=== PATIENT | male | born 1960 | race Two or more races ===

== ENCOUNTER 2024-10-28 12:54 | Inpatient (IN) | payer MEDICAID ==
[~2024-10-28] VITALS: Ht 165.1 cm; Wt 62.3 kg
[~2024-10-28 12:54] MED LIST: ASPI81TA53 PO; ATOR10TA PO; HYDR-3972 PO; LISI10TA27 PO; METO50TA16 PO
[2024-10-28 13:17] LABS: BASOPHILS % (AUTO) 0.3 % (0-1); EOSINOPHILS # (AUTO) 0.3 X10'3 (0-0.9); HEMATOCRIT 38.3 % (42.0-52.0); HEMOGLOBIN 12.7 g/dl (14.0-17.9); LYMPHOCYTES # (AUTO) 2.3 X10'3 (1.1-4.8); LYMPHOCYTES % (AUTO) 16.8 % (21-51); MEAN CORPUSCULAR HEMOGLOBIN 27.9 PG (27.0-31.0); MEAN CORPUSCULAR HGB CONC 33.1 g/dL (33.0-36.5); MEAN CORPUSCULAR VOLUME 84.5 FL (78-98); MEAN PLATELET VOLUME 8.5 FL (7.4-10.4); MONOCYTES % (AUTO) 7.6 % (2-12); NEUTROPHILS % (AUTO) 73.3 % (42-75); PLATELET COUNT 380 X10'3 (140-440); RED BLOOD COUNT 4.54 X10'6 (4.70-6.10); RED CELL DISTRIBUTION WIDTH 13.4 % (11.5-14.5); WHITE BLOOD COUNT 13.7 X10'3 (4.5-11.0)
[2024-10-28 13:37] LABS: ALANINE AMINOTRANSFERASE 68 U/L (12-78); ALBUMIN 3.3 G/DL (3.4-5.0); ALBUMIN/GLOBULIN RATIO 0.8 (1.1-1.5); ALKALINE PHOSPHATASE 93 IU/L (46-116); ASPARTATE AMINO TRANSFERASE 36 U/L (10-37); BILIRUBIN,TOTAL 0.8 MG/DL (0.1-1.0); BLOOD UREA NITROGEN 22 MG/DL (7-18); CALCIUM 9.4 MG/DL (8.5-10.1); GLUCOSE 144 MG/DL (70-104); TOTAL CARBON DIOXIDE 28.6 MMOL/L (24-32); TOTAL PROTEIN 7.5 G/DL (6.4-8.2); eCRCL 57 ML/MIN; eGFR 67 ML/MIN
--- NOTE | 2024-10-28 13:43 | ELECTROCARDIOGRAPH REPORT ---
[facility] Test Date: 2024-10-28 Test Time: 13:08:34 Pat Name: JED MARCIAL Department: EMERGENCY ROOM Room: ORTHO [facility] Gender: M Card Placer: TSERING : 1960 Requested By: EMILY SANDOVAL Order Number: [id number] Reading MD: Dr. Rubens Garcia Measurements Intervals Orr Rate: 117 P: 67 MD: 103 QRS: 37 QRSD: 81 T: 103 QT: 305 QTc: 426 Interpretive Statements Sinus tachycardia Probable left atrial enlargement Abnormal R-wave progression, early transition Borderline repolarization abnormality Baseline wander in lead(s) II,III,aVL,aVF Electronically Signed On 10-29-2024 6:40:[address] Rubens Garcia Please click the below link to view image of tracing.
--- NOTE | 2024-10-28 13:47 | RADIOLOGY REPORT ---
EXAM: DI CHEST,SINGLE VIEW Indication: CP Technique: Single frontal view of the chest was obtained Comparison: DI CHEST,SINGLE VIEW on DOS: 10/24/24, DI CHEST,SINGLE VIEW on DOS: 10/23/24, DI CHEST,SING LE VIEW on DOS: 10/22/24, DI CHEST,SINGLE VIEW on DOS: 10/21/24 FINDINGS: Lines and Tubes: None Lungs: No focal consolidation. Pleura: No effusion. No pneumothorax. Cardiomediastinal contours: Unremarkable Bones: No acute osseous abnormality. IMPRESSION: No acute cardiopulmonary disease.
[2024-10-28 13:55] LABS: PRO BRAIN NATRIURETIC PEPTIDE 1333 PG/ML (0-125)
[2024-10-28] MEDS ORDERED: aspirin 81mg tab.chew PO ONE (14:00)
[2024-10-28 14:07] LABS: ANION GAP 8 (8-16); CHLORIDE 105 MMOL/L (99-107); POTASSIUM 4.2 MMOL/L (3.5-5.1); SODIUM 142 MMOL/L (135-145)
--- NOTE | 2024-10-28 14:36 | RADIOLOGY REPORT ---
CLINICAL INFORMATION: 64 years old, Male; numbness. TECHNIQUE: Axial imaging was obtained through the brain without contrast. Coronal and sagittal reform atted images were obtained, reviewed, and stored. Images were reviewed in brain and bone windows. Al l CT scans at this medical facility are performed using dose modulation techniques as appropriate to a performed exam including the following: Automated exposure control was utilized; adjustment of the MA and/or KV according to patient size; and use of iterative reconstruction technique. CTDIvol = 54.1 4 mGy DLP = 938.05 mGy-cm COMPARISON: None FINDINGS: There is no acute intracranial hemorrhage. No mass effect or midline shift. Scattered areas of hypoattenuation are seen in the periventricular and subcortical white matter, which are nonspecif ic but most likely sequelae of small vessel ischemic disease. Small lucency in the left basal ganglia , possible chronic lacunar infarct or prominent perivascular space. The ventricles and sulci are with in normal limits in size for age. Basal cisterns are patent. The calvarium is unremarkable. Paranasa l sinuses and mastoid air cells are clear. IMPRESSION: 1. No CT evidence of acute intracranial abnormality. 2. Nonacute findings as described above.
--- NOTE | 2024-10-28 15:01 | Physician Documentation ---
History of Present Illness ~ Chief Complaint: Numbness Stated Complaint: R SIDED NUMBNESS Time Seen by MD: 15:01 Primary Medical Doctor: Dr. Hobson Source: patient, family HPI 64-year-old male history of CAD status post CABG Dr. Cheek 10/22/2024, hyperlipidemia, hypertension presenting for weakness and numbness of his right side. He reports symptoms in his right arm and right face which began yesterday morning and have progressively worsened into today. He denies headache. No chest pain no shortness of breath Medication Reconciliation Allergies: Coded Allergies: No Known Allergies (Unverified , 10/21/24) Scheduled Aspirin (Children's Aspirin), 81 MG PO Q24H@0830 Atorvastatin Calcium (Lipitor), 10 MG PO HS Lisinopril (Lisinopril), 10 MG PO DAILY Metoprolol Tartrate (Metoprolol Tartrate), 1 TAB PO Q12H Scheduled PRN Hydrocodone Bit/Acetaminophen (Hydrocodon-Acetaminophn 10-325 tablet), 1 TAB PO Q6H PRN for MODERATE PAIN 4-6 Discontinued Medications Home Med List (No Home Medications), (Reported) Past Medical History Patient History: Patient reports no known family medical history. 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 Surgical incision intact Cranial nerves 2-12 intact no aphasia. No dysarthria normal gait Cardiopulmonary clear to auscultation bilaterally no murmurs no wheezing rhonchi or rales Abdomen is soft nontender Lower extremity no edema t-PA t-PA given w/in 2hrs?: No Reason t-PA not Given: Medical Contraindication Progress Progress Note Independent interpretation of labs show improving hemoglobin 12.7 Troponin elevation 1900, elevated proBNP consistent with post surgical values EKG independently interpreted by myself time 1:08 p.m. indication symptomatic patient sinus tachycardia rate 117 normal axis normal intervals no ST or T-wave abnormalities Results/Orders Reviewed/noted all lab results: Yes Results/Orders Orders - EMILY SANDOVAL MD Chest,Single View (10/28/24 13:04) Monitor (10/28/24 13:04) Saline Lock (10/28/24 13:04) Oxygen (10/28/24 13:04) Hs Troponin I W Calculations (10/28/24 16:04) Ct Head (10/28/24 14:22) [place] Prov.Neuro Consult (10/28/24 15:02) Cta Neck/Head (10/28/24 ) Page Hospitalist (10/28/24 15:55) Fill Out Med Reconciliation (10/28/24 15:55) Completed Orders - EMILY SANDOVAL MD Chest,Single View (10/28/24 13:04) Cbc/Diff (10/28/24 13:04) PBNP (10/28/24 13:04) Electrocardiogram (10/28/24 13:04) CMP (10/28/24 13:04) Hs Troponin I W Calculations (10/28/24 13:04) Hs Troponin I W Calculations (10/28/24 15:04) Ct Head (10/28/24 14:22) Iohexol 350mg/Ml 100ml (Omnipaque 350mg/ (10/28/24 16:05) Vital Signs 10/28/24 10/28/24 12:55 15:30 Temp 98.0 Pulse 112 Resp 16 16 B/P (MAP) 108/82 Pulse Ox 99 O2 Flow Rate 0 Laboratory Tests Test 10/28/24 13:08 10/28/24 15:09 White Blood Count 13.7 H Red Blood Count 4.54 L Hemoglobin 12.7 L Hematocrit 38.3 L Mean Corpuscular Volume 84.5 Mean Corpuscular Hemoglobin 27.9 Mean Corpuscular Hemoglobin Concent 33.1 Red Cell Distribution Width 13.4 Platelet Count 380 # Mean Platelet Volume 8.5 Neutrophils (%) (Auto) 73.3 Lymphocytes (%) (Auto) 16.8 L Monocytes (%) (Auto) 7.6 Eosinophils (%) (Auto) 2.0 Basophils (%) (Auto) 0.3 Neutrophils # (Auto) 10.0 H Lymphocytes # (Auto) 2.3 Monocytes # (Auto) 1.0 H Eosinophils # (Auto) 0.3 Basophils # (Auto) 0.0 CBC Comment Sodium Level 142 Potassium Level 4.2 Chloride Level 105 Carbon Dioxide Level 28.6 Anion Gap 8 Blood Urea Nitrogen 22 H Creatinine 1.10 Estimated GFR/1.73 m2 67 BUN/Creatinine Ratio 20.0 Glucose Level 144 H Calcium Level 9.4 Total Bilirubin 0.8 Aspartate Amino Transf (AST/SGOT) 36 Alanine Aminotransferase (ALT/SGPT) 68 Alkaline Phosphatase 93 Troponin I High Sensitivity 1947 *H 1712 *H Pro-B-Type Natriuretic Peptide 1333 H Total Protein 7.5 Albumin 3.3 L Globulin 4.2 Albumin/Globulin Ratio 0.8 L Chemistry Comments Troponin I High Sens Percent Delta 12 Troponin I Hi Sens Absolute Change -235 Re-Evaluation Re-Evaluation : Progress Discussed case with tele Neurology they are recommending a CT angiogram of head and neck, starting Plavix and admission for stroke workup EKG/XRAY/CT/US/VASC/MRI CT : Impression CT head independently interpreted by myself shows no acute abnormality Medical Decision Making Additional info obtained from: old records Additional Information CVA, acute coronary syndrome, electrolyte abnormality, Departure Disposition: ADMITTED INPATIENT Admitted to Inpatient Unit: to hospitalist Impression: Primary Impression: CVA (cerebral vascular accident) Qualified Codes: I63.9 - Cerebral infarction, unspecified Referrals: NO PRIMARY CARE PROVIDER (PCP) Signature Scribe Signature: na Attestation: EMILY Rebolledo MD October 28, 2024 15:01
--- NOTE | 2024-10-28 15:58 | [facility] CONSULT REPORT ---
[facility] Procedure Note [facility] Procedure Note Consult [facility] Note # Demographics Consult Type: General Neurology Patient Location: Emergency Room First Name: JED Last Name: AGGIE Date of : 1960 Age: 64 Gender: Male Facility: [facility] Time of Initial Page (): 10/28/2024 15:08 Time of Return Call (): 10/28/2024 15:10 # HPI History: Numbness on right side face and arm since yesterday. Rceent cabg 10/22 Last Known Normal: 5 days # Scores Level of Consciousness 1a: [0] = Alert; keenly responsive LOC Questions 1b: [0] = Answers both questions correctly LOC Commands 1c: [0] = Performs both tasks correctly Best Gaze 2: [0] = Normal Visual 3: [0] = No visual loss Facial Palsy 4: [0] = Normal symmetrical movements Motor Arm Left 5a: [0] = No drift Motor Arm Right 5b: [0] = No drift Motor Leg Left 6a: [0] = No drift Motor Leg Right 6b: [0] = No drift Limb Ataxia 7: [0] = Absent Sensory 8: [1] = [id number] sensory loss Best Language 9: [0] = No aphasia Dysarthria 10: [0] = Normal Extinction and Inattention 11: [0] = No abnormality NIHSS Total: 1 # Exam Vitals: vital signs reviewed # Data Head CT: - no bleed - per radiologist read - preliminarily reviewed by me, please refer to radiology read for official reading # Assessment Impression: - Ischemic Stroke (Acute) # Plan Thrombolytic/Intervention: NOT IV Thrombolysis or IA Intervention candidate Thrombolytic Exclusion: > 4.5 hours Intraarterial Exclusion: - clinical exam not consistent with presence of large vessel occlusion (LVO), can reconsider if LVO found on vascular imaging Target Blood Pressure: SBP < 180 Labs: - hemoglobin A1c - lipid panel Imaging: (urgency: STAT): - CT Angiogram Head and CT Angiogram Neck AND call back with results if abnormal Diagnostic Test: - echo without bubble study Therapy/Evaluation: - NPO until swallow evaluation - PT/OT evaluation - speech/swallow consultation Medication: - start statin with goal of LDL < 70 - Plavix 300 mg PO x1 now, then 75 mg daily x 21 days + asa 81mg x 21 days, followed by monotherapy thereafter Other: - If patient has any neurological deterioration please call me back immediately - I have discussed my recommendations with the referring provider - telemetry monitoring - LDL < 70 - will need event monitor or loop recorder as outpatient if atrial fibrillation not found as inpatient Disposition: admit # Logistics Attestation of consult completion: The patient is located at: [facility]. Facility staff participated in the visit. I performed this telemedicine visit from my offsite office utilizing interactive 2 way audio and visual telecommunication technology. Total time spent in telemedicine encounter: I spent 21 minutes reviewing clinical data and/or imaging, obtaining history, examining the patient, communi cating with the onsite care team, and in preparation of this report. # Demographics First Name: JED Last Name: AGGIE Facility: [facility] Electronically signed at 10/28/2024 15:58 (Early Time) by Julian Barbosa MD Neuro Consult Order placed for: Yes KULDEEP BARBOSA MD October 28, 2024 15:58
[2024-10-28] MEDS ORDERED: iohexol 350MG/ML 100ml bottle IV ONE (16:05)
--- NOTE | 2024-10-28 16:21 | HISTORY AND PHYSICAL ---
History & Physical Providers to CC ~ History of Present Illness Reason for Admit\Complaint: Sided paresthesias History of Present Illness History of present illness patient is a pleasant 64-year-old gentleman who is a [place], speaks Lukas and Slovenian -- no Turkish. His son is at the bedside who helps with the translation though I also speak his language. Patient states that he has been having paresthesias on his right upper extremity right lower extremity on the right side of his face feels like it is pulling and tugging towards the right side. He finds this to be quite uncomfortable he denies any other seizure syncope or near syncopal episode. He denies any weakness in any of the extremities. He denies any difficulty with speech. He denies any drooling. Tele neurology with [facility] was already consulted by the ER physician and they do not believe patient is a candidate for thrombolytics at this time as the symptoms are more than 4-1/2 hours old. He denies any other associated symptoms he says he still has a left over pain over his chest wall since a week ago when he had surgery with Dr. Mccauley status post four vessel CABG. Prior to his CABG he says he has not seen many doctors and was not taking any treatment for anything. Patient was just recently in the hospital from October 21 to October 28. Allergies: Coded Allergies: No Known Allergies (Unverified , 10/21/24) Home Medications Home Medications Active Lisinopril 10 Mg Tablet 10 Mg PO DAILY Metoprolol Tartrate 50 Mg Tablet 1 Tab PO Q12H 30 Days Hydrocodon-Acetaminophn 10-325 tablet (Acetaminophen/Hydrocodone Bitart) 10mg- 325mg Tablet 1 Tab PO Q6H PRN Children's Aspirin (Aspirin) 81 Mg Tab.chew 81 Mg PO Q24H@0830 Lipitor (Atorvastatin Calcium) 10 Mg Tablet 10 Mg PO HS Past Medical History Past Medical History Past medical history significant for CAD hypertension hyperlipidemia diabetes Past surgical history four-vessel CABG about a week ago Social history denies any tobacco EtOH or IV drug abuse is lives with family Family history nothing of significance parents of old age he believes Allergies are NKDA Review of systems negative for all 10 systems reviewed Family History Family History: Patient reports no known family medical history. Exam Vitals: Vital Signs Date Time Temp Pulse Resp B/P (MAP) Pulse Ox O2 Delivery O2 Flow Rate FiO2 10/28/24 15:30 16 10/28/24 12:55 98.0 112 99 0 General: Patient is alert and oriented x4 in no acute distress lying down comfortably speaking in full sentences HEENT normocephalic nontraumatic head there is no facial droop there is frontal sparing CVS first and second heart sounds are and sinus tachycardia no murmurs gallops or rubs Respiratory system is clear to auscultate bilaterally no rales rhonchi crackles or wheezing Abdomen is soft scaphoid benign bowel sounds are positive nontender nondistended no masses no fluid thrill appreciated Extremities no clubbing cyanosis or edema Neurological exam there is no focal deficits peripheral pulses and reflexes are plus two. Pain sensation is intact Skin is warm and dry Chest wall has well-healed surgical scar over the sternum Diagnostic Data Last Recorded Lab Results: 10/28/24 1308 10/28/24 1308 Additional Plan Assessment and plan --rule out CVA-patient is not a candidate for thrombolytics because symptoms began more than 4-1/[address] head negative Ordered an MRI of the brain echocardiogram bilateral carotid ultrasounds [facility]-- consult appreciated Patient is started on aspirin Lipitor Plavix Neurochecks q.4 Physical therapy --CAD status post four-vessel CABG Elevated troponins continue with aspirin and Plavix for now possibly secondary to recent CABG consult judge's clerk on-call I texted Dr. Anthony of the patient's return to the ER --diabetes Start the patient on a insulin sliding scale Check Accu-Cheks q.a.c. q.h.s. -hypertension Hold antihypertensive that is point aim to keep the systolics in 160s to 180s --hyperlipidemia continue with statins --leukocytosis Etiology unclear questionably reactive there is No fevers chills noted We will monitor --DVT prophylaxis patient is started on Lovenox --patient is a full code per his wishes Patient's son is at the bedside all questions answered to the best of my ability they agree with the current plan of care and agree with to proceed Date of Service: October 28, 2024 Billing Provider: LADI DEMARCO MD Common Visit Codes: [id number] INP/OBS CARE (HIGH) LADI DEMARCO MD October 28, 2024 16:21
[2024-10-28] MEDS ORDERED: morphine 2 MG/ML inj. syringe IV PRN (16:25)
[2024-10-28] MEDS ORDERED: ondansetron/PF 4mg/2ml inj IV PRN (16:25)
[2024-10-28] MEDS ORDERED: magnesium hydroxide 30ml (MOM) UD suspension PO PRN (16:25)
[2024-10-28] MEDS ORDERED: potassium Cl 20 mEq SR tablet PO PRN ×2 (16:25)
[2024-10-28] MEDS ORDERED: magnesium sulf-water 4G/100mL 100 ML IV PRN (16:25)
[2024-10-28] MEDS ORDERED: HYDROcodone/acetaminophen 5mg/325mg tablet PO PRN (16:25)
[2024-10-28] MEDS ORDERED: magnesium Cl slow-release 64mg tablet PO PRN (16:25)
[2024-10-28] MEDS ORDERED: magnesium sulf-water 2g/50mL 50 ML IV PRN (16:25)
[2024-10-28] MEDS ORDERED: mag hydrox/Alum hydrox/simeth 30ml oral suspension PO PRN (16:25)
[2024-10-28] MEDS ORDERED: potassium Cl 40MEQ/1/2NS 520ml 520 ML IV PRN (16:25)
[2024-10-28] MEDS ORDERED: acetaminophen 325mg tablet PO PRN (16:25)
[2024-10-28] MEDS ORDERED: dextrose 50%-water 50ml dispensing syringe IV PRN ×2 (17:30)
[2024-10-28] MEDS ORDERED: glucagon, human recombinant 1mg kit SUBCUT PRN (17:30)
[2024-10-28] MEDS ORDERED: DEXTROSE 15 GM of carb/4 tabs (each vial/BOTTLE has 4 tablets) PO PRN ×2 (17:30)
--- NOTE | 2024-10-28 18:29 | RADIOLOGY REPORT ---
EXAM: CT CTA NECK/HEAD HISTORY: cva COMPARISON: None TECHNIQUE: CTA imaging of the neck and head was performed following the uneventful administration of intravenous contrast. Sagittal and coronal reformatted images were obtained from the source data. 3D /MIP post-processing of the source data set was performed and reviewed by the radiologist. Radiation Dose Information: CT Dose: CTDI volume is 14 mGy. Dose-length product is 522 mGy*cm All CT scans at this medical facility are performed using dose modulation techniques as appropriate t o a performed exam including the following: Automated exposure control was utilized; adjustment of th e MA and/or KV according to patient size; and use of iterative reconstruction technique. FINDINGS: CTA Neck: Aortic Arch: Conventional branching. Right brachiocephalic artery: Unremarkable. Right carotid artery: Unremarkable. Right subclavian artery: Unremarkable. Right vertebral artery: Unremarkable. Left carotid artery: Unremarkable. Left subclavian artery: Unremarkable. Left vertebral artery: Unremarkable. Other: Small bilateral pleural effusions and mild adjacent pulmonary opacities. CTA Head: [place]: The arteries of [place] are unremarkable, without evidence of aneurysm, steno sis or thrombosis. Dural venous: Grossly unremarkable. Other: None. IMPRESSION: 1. Suboptimal motion degraded study. Considering this limitation, no large vessel occlusion or high-g rade stenosis noted in the head and neck. 2. Small bilateral pleural effusions and mild adjacent pulmonary opacities.
[2024-10-28 19:10] VITALS: BP 158/99; PULSE 110; RESP 15; TEMP 98.6; O2SAT 96
[2024-10-28 20:00] VITALS: RESP 13; O2SAT 98
[2024-10-28] MEDS ORDERED: clopidogrel 75mg tablet PO SCH (20:00)
[2024-10-28] MEDS: INSULIN LISPRO 100 UNIT/ML INSULN.PEN MULTI-DOSE SQ SCH (21:00)
[2024-10-28] MEDS: K and/or MAG REPLACEMENT MC SCH (21:10)
[2024-10-28] MEDS: atorvastatin 20mg tablet PO SCH (21:13)
[2024-10-28] MEDS: docusate sod 100mg capsule PO SCH (21:13)
[2024-10-28 22:00] VITALS: BP 142/74; PULSE 75; RESP 13; TEMP 98.7; O2SAT 98
[2024-10-28] MEDS: clopidogrel 300mg tablet PO ONE (22:19)
--- NOTE | 2024-10-29 00:45 | RADIOLOGY REPORT ---
PROCEDURE: MR MRI HEAD INDICATION: cva EXAM DATE: 10/28/2024 09:33 PM COMPARISON: CT CT HEAD on DOS: 10/28/24 TECHNIQUE: MRI of the brain without intravenous contrast. FINDINGS: Diffusion weighted images of the brain demonstrate evidence of a small acute infarct in the left thal amus. There is no evidence of intracranial hemorrhage, extra-axial collection, mass effect, midline shift, herniation or hydrocephalus. The ventricles, sulci and cisterns are normal. Prominent prevascular spaces noted in bilateral basal ganglia. Visualized paranasal sinuses and mastoid air cells are clear. Soft tissues and osseous structures ar e unremarkable. IMPRESSION: Small acute infarct in left thalamus.
[2024-10-29 01:26] VITALS: BP 129/77; PULSE 107; RESP 18; TEMP 98; O2SAT 95
[2024-10-29 06:00] VITALS: BP 135/84; PULSE 107; RESP 16; TEMP 98.7; O2SAT 95
[2024-10-29 06:32] LABS: BASOPHILS % (AUTO) 0.4 % (0-1); EOSINOPHILS # (AUTO) 0.3 X10'3 (0-0.9); HEMATOCRIT 33.6 % (42.0-52.0); HEMOGLOBIN 11.3 g/dl (14.0-17.9); LYMPHOCYTES # (AUTO) 1.5 X10'3 (1.1-4.8); LYMPHOCYTES % (AUTO) 14.5 % (21-51); MEAN CORPUSCULAR HEMOGLOBIN 28.4 PG (27.0-31.0); MEAN CORPUSCULAR HGB CONC 33.7 g/dL (33.0-36.5); MEAN CORPUSCULAR VOLUME 84.3 FL (78-98); MEAN PLATELET VOLUME 8.3 FL (7.4-10.4); MONOCYTES # (AUTO) 0.9 X10'3 (0-0.9); MONOCYTES % (AUTO) 8.5 % (2-12); NEUTROPHILS # (AUTO) 7.5 X10'3 (1.8-7.7); NEUTROPHILS % (AUTO) 73.6 % (42-75); PLATELET COUNT 309 X10'3 (140-440); RED BLOOD COUNT 3.99 X10'6 (4.70-6.10); WHITE BLOOD COUNT 10.1 X10'3 (4.5-11.0)
[2024-10-29 07:05] LABS: ALANINE AMINOTRANSFERASE 56 U/L (12-78); ALBUMIN 2.8 G/DL (3.4-5.0); ALBUMIN/GLOBULIN RATIO 0.8 (1.1-1.5); ALKALINE PHOSPHATASE 77 IU/L (46-116); ANION GAP 11 (8-16); ASPARTATE AMINO TRANSFERASE 26 U/L (10-37); BILIRUBIN,TOTAL 0.9 MG/DL (0.1-1.0); BLOOD UREA NITROGEN 17 MG/DL (7-18); BUN/CREATININE RATIO 18.3 (10.0-20.0); CALCIUM 8.6 MG/DL (8.5-10.1); CHLORIDE 105 MMOL/L (99-107); CREATININE 0.93 MG/DL (0.60-1.10); GLUCOSE 116 MG/DL (70-104); MAGNESIUM 2.2 MG/DL (1.5-2.4); POTASSIUM 4.1 MMOL/L (3.5-5.1); SODIUM 142 MMOL/L (135-145); TOTAL CARBON DIOXIDE 26.4 MMOL/L (24-32); TOTAL PROTEIN 6.4 G/DL (6.4-8.2); eCRCL 68 ML/MIN; eGFR 81 ML/MIN
[2024-10-29 07:35] VITALS: RESP 16; O2SAT 95
[2024-10-29] MEDS ORDERED: aspirin 325mg tablet PO SCH (08:30)
[2024-10-29 10:00] VITALS: BP 115/79; PULSE 111; RESP 16; TEMP 98.1; O2SAT 97
[2024-10-29] MEDS: clopidogrel 75mg tablet PO SCH (10:27)
[2024-10-29] MEDS: enoxaparin 40mg/0.4ml syringe SUBCUT SCH (10:28)
[2024-10-29] MEDS: aspirin 325mg tablet PO SCH (10:41)
--- NOTE | 2024-10-29 10:50 | PROGRESS NOTE ---
Daily Progress Note Providers to CC ~ Antibiotic Timeout Antibiotic Ordered?: No Subjective Chief complaint numbness and tingling in the right upper and right lower extremities about the same not better or worse no other neurological deficits. Patient denies any chest pain dyspnea on exertion PND orthopnea. Review of systems negative for all 10 systems reviewed Objective Vital Signs Date Time Temp Pulse Resp B/P (MAP) Pulse Ox O2 Delivery O2 Flow Rate FiO2 10/29/24 06:00 98.7 107 16 135/84 (101) 95 Room Air 10/28/24 12:55 0 Result Diagram: 10/29/2439 10/29/24538 Patient is alert and oriented x4 in no acute distress lying down comfortably speaking in full sentences HEENT normocephalic nontraumatic head there is no facial droop there is frontal sparing CVS first and second heart sounds are and sinus tachycardia no murmurs gallops or rubs Respiratory system is clear to auscultate bilaterally no rales rhonchi crackles or wheezing Abdomen is soft scaphoid benign bowel sounds are positive nontender nondistended no masses no fluid thrill appreciated Extremities no clubbing cyanosis or edema Neurological exam there is no focal deficits peripheral pulses and reflexes are plus two. Pain sensation is intact. Cranial nerves 2/12 grossly intact Skin is warm and dry Chest wall has well-healed surgical scar over the sternum Problem\Assessment\Plan Additional Plan Assessment and plan --rule in acute small left thalamic CVA-patient is not a candidate for thrombolytics because symptoms began more than 4-1/[address] head negative Rise positive for small acute left thalamus stroke Echocardiogram Pending Results Carotid ultrasounds-negative for any occlusion [facility]-- consult appreciated Patient is started on aspirin Lipitor Plavix Continue with neuro checks and physical therapy Patient may need a loop recorder versus Holter monitor as an outpatient --CAD status post four-vessel CABG I texted Dr. Anthony of the patient's return to the ER Elevated troponins- Case discussed in details with Dr. Tejeda- plan is for conservative management continue aspirin Plavix Lipitor has been maximized to 80 mg p.o. q.h.s. --diabetes Start the patient on a insulin sliding scale Check Accu-Cheks q.a.c. q.h.s. -hypertension Hold antihypertensive that is point aim to keep the systolics in 160s to 180s --hyperlipidemia continue with statins at maximum 80 mg p.o. q.h.s. of Lipitor --leukocytosis resolved --DVT prophylaxis patient is started on Lovenox --patient is a full code per his wishes Date of Service: October 29, 2024 Billing Provider: LADI DEMARCO MD Common Visit Codes: [id number] INP/OBS CARE(HIGH) LADI DEMARCO MD October 29, 2024 10:50
--- NOTE | 2024-10-29 13:52 | VASCULAR REPORT ---
Carotid Duplex Date: 10/29/2024 11:06 AM Clinical History: Syncope Comparison: VASC VL CAROTID on DOS: 10/21/24 Technique: Duplex Doppler evaluation of the extracranial carotid and vertebral arteries including col or Doppler and spectral/pulsed waveform analysis was performed. Findings: RIGHT SIDE: The peak systolic velocities are 73 cm/s in the distal CCA and 82 cm/s in the proximal ICA.The ICA/CC A ratio is 1.12. The external carotid artery is patent with peak systolic velocity of 51 cm/s proximally. There is appropriate antegrade flow in the right vertebral artery. The subclavian artery is patent with peak systolic velocity of 128 cm/s proximally. LEFT SIDE: The peak systolic velocities are 88 cm/s in the distal CCA and 90cm/s in the proximal ICA. The ICA/ CCA ratio is 1.02. The external carotid artery is patent with peak systolic velocity of 69 cm/s proximally. There is appropriate antegrade flow in the left vertebral artery. The subclavian artery is patent with peak systolic velocity of 122cm/s proximally. IMPRESSION: No hemodynamically significant stenosis noted in the right carotid system. No hemodynamically significant stenosis noted in the left carotid system. Reference: Radiology 2003; 229:340-346
[2024-10-29 18:00] VITALS: BP 117/64; PULSE 118; RESP 20; TEMP 98.2; O2SAT 95
--- NOTE | 2024-10-29 19:35 | PROGRESS NOTE ---
Progress Note Cardiology Providers to CC ~ Subjective Subjective Patient known to me from last week's admission. Patient last time came in with acute coronary syndrome, had severe three-vessel disease and required CABG Was discharged on 10/27/2024. Patient hospitalized again today with CVA small left thalamic infarction. Mild elevation of troponins ? Coming down from prior CABG Objective Result Diagram: 10/29/2439 10/29/2439 Objective General: Normal body habitus, no acute distress, HEENT: Sclerae clear, PERRL, gums without lesions or bleeding, oropharynx clear without erythema or exudate. Neck: Supple without enlargement of the thyroid, or lymphadenopathy, Chest: Normal size and shape, no tenderness, nonlabored breathing, Breath sounds clear to auscultation. Heart: Regular in rate and rhythm, S1 and S2 normal, no S3-S4 or murmurs. Abdomen: Soft, nontender, no organomegaly, bowel sounds present. Extremities: No edema cyanosis or clubbing. Problem\Assessment\Plan Additional Plan 1. * A 64-year-old male with acute CVA: Small left thalamic infarction. Management per hospitalist and neurologist. 2. CAD status post CABG x4 Cardiac catheterization on 10/21/2024 reveals LAD 80% om 80 and 100% narrowing PDA 80% narrowing Culprit vessel OM 200% occluded successfully recanalized with angioplasty. Patient treated with Aggrastat. Patient reviewed by Dr. Kayley Crews and subsequent CABG x4 . Patient discharged on 10/27/24. Continue aspirin, beta blockers and statins. 3. Downtrending troponins: [place] [address] on 10/21/2024. During this admission they are 1947, 1712, and 1464 . They appeared to be downtrending Troponins from prior admission. Echocardiogram from this admission showed normal EF with no new wall motion abnormalities. Continue aspirin Plavix and statins. 2. * diabetes, Hypertension, hyperlipidemia. Counseled on coronary risk factor modification. Continue to control his blood pressure with beta-blockers, CAROLINE inhibitor and start statins. Other comorbidities include: Anemia with hemoglobin of 11.3. VIKKI GUTIERREZ MD October 29, 2024 19:35
[2024-10-29] MEDS: atorvastatin 20mg tablet PO SCH (20:46)
[2024-10-29] MEDS: HYDROcodone/acetaminophen 10/325mg tab PO PRN (20:54)
[2024-10-29 22:00] VITALS: BP 153/96; PULSE 103; RESP 18; TEMP 97.7; O2SAT 97
[2024-10-30 02:00] VITALS: BP 106/70; PULSE 104; RESP 18; TEMP 98.3; O2SAT 95
[2024-10-30 06:00] VITALS: BP 121/78; PULSE 97; RESP 18; TEMP 98.1; O2SAT 95
[2024-10-30 06:10] LABS: BASOPHILS % (AUTO) 0.5 % (0-1); EOSINOPHILS # (AUTO) 0.2 X10'3 (0-0.9); EOSINOPHILS % (AUTO) 2.8 % (0-6); HEMATOCRIT 32.3 % (42.0-52.0); HEMOGLOBIN 10.9 g/dl (14.0-17.9); LYMPHOCYTES # (AUTO) 1.4 X10'3 (1.1-4.8); LYMPHOCYTES % (AUTO) 16.6 % (21-51); MEAN CORPUSCULAR HEMOGLOBIN 28.7 PG (27.0-31.0); MEAN CORPUSCULAR HGB CONC 33.8 g/dL (33.0-36.5); MEAN CORPUSCULAR VOLUME 84.8 FL (78-98); MEAN PLATELET VOLUME 8.4 FL (7.4-10.4); MONOCYTES # (AUTO) 0.8 X10'3 (0-0.9); MONOCYTES % (AUTO) 9.7 % (2-12); NEUTROPHILS # (AUTO) 6.1 X10'3 (1.8-7.7); NEUTROPHILS % (AUTO) 70.4 % (42-75); PLATELET COUNT 335 X10'3 (140-440); RED CELL DISTRIBUTION WIDTH 13.3 % (11.5-14.5); WHITE BLOOD COUNT 8.6 X10'3 (4.5-11.0)
[2024-10-30 06:33] LABS: ALANINE AMINOTRANSFERASE 51 U/L (12-78); ALBUMIN 2.8 G/DL (3.4-5.0); ALBUMIN/GLOBULIN RATIO 0.8 (1.1-1.5); ALKALINE PHOSPHATASE 76 IU/L (46-116); ANION GAP 8 (8-16); ASPARTATE AMINO TRANSFERASE 21 U/L (10-37); BILIRUBIN,TOTAL 0.8 MG/DL (0.1-1.0); BLOOD UREA NITROGEN 21 MG/DL (7-18); BUN/CREATININE RATIO 20.6 (10.0-20.0); CALCIUM 8.8 MG/DL (8.5-10.1); CHLORIDE 105 MMOL/L (99-107); CREATININE 1.02 MG/DL (0.60-1.10); GLUCOSE 113 MG/DL (70-104); MAGNESIUM 2.1 MG/DL (1.5-2.4); POTASSIUM 4.1 MMOL/L (3.5-5.1); SODIUM 141 MMOL/L (135-145); TOTAL CARBON DIOXIDE 28.5 MMOL/L (24-32); TOTAL PROTEIN 6.5 G/DL (6.4-8.2); eCRCL 62 ML/MIN; eGFR 73 ML/MIN
[2024-10-30 07:05] VITALS: RESP 18; O2SAT 95
[2024-10-30] MEDS ORDERED: CLOP75TA34 PO (09:46)
[2024-10-30] MEDS ORDERED: ATOR20TA66 PO (09:46)
--- NOTE | 2024-10-30 09:52 | DISCHARGE SUMMARY ---
Discharge Summary Providers to CC ~ Discharge Summary Admission Diagnosis: r/o cva Hospital Course DATE OF ADMISSION: 10/28/2024 DATE OF DISCHARGE: 10/30/2024 Discharge Diagnosis\Comment: Acute small left thalamic infarct CAD hypertension hyperlipidemia Operations\Procedures: None Consultants: [facility] Consultant Dr. Tejeda and tele neurology Complications: None Condition on DC: Stable New Medications: Atorvastatin Calcium (Atorvastatin Calcium) 20 Mg Tablet 80 MG PO HS for 30 Days, #30 TAB Clopidogrel Bisulfate (Clopidogrel) 75 Mg Tablet 75 MG PO DAILY for 30 Days, #30 TAB Do not stop medication unless instructed by prescriber. Continued Medications: Aspirin (Children's Aspirin) 81 Mg Tab.chew 81 MG PO Q24H@0830, #60 TAB.CHEW Hydrocodone Bit/Acetaminophen (Hydrocodon-Acetaminophn 10-325 tablet) 10mg- 325mg Tablet 1 TAB PO Q6H PRN for MODERATE PAIN 4-6, #30 TAB Lisinopril (Lisinopril) 10 Mg Tablet 10 MG PO DAILY, #60 TAB Metoprolol Tartrate (Metoprolol Tartrate) 50 Mg Tablet 1 TAB PO Q12H for 30 Days, #60 TAB Discontinued Medications: Atorvastatin Calcium (Lipitor) 10 Mg Tablet 10 MG PO HS, #60 TAB Discharge Summary: Patient is a 64-year-old [place] gentleman came in with right-sided paresthesias on 10/28/2024 with History of Present Illness History of present illness patient is a pleasant 64-year-old gentleman who is a [place], speaks Lukas and Turkmen -- no Togolese. His son is at the bedside who helps with the translation though I also speak his language. Patient states that he has been having paresthesias on his right upper extremity right lower extremity on the right side of his face feels like it is pulling and tugging towards the right side. He finds this to be quite uncomfortable he denies any other seizure syncope or near syncopal episode. He denies any weakness in any of the extremities. He denies any difficulty with speech. He denies any drooling. Tele neurology with [facility] was already consulted by the ER physician and they do not believe patient is a candidate for thrombolytics at this time as the symptoms are more than 4-1/2 hours old. He denies any other associated symptoms he says he still has a left over pain over his chest wall since a week ago when he had surgery with Dr. Mccauley status post four vessel CABG. Prior to his CABG he says he has not seen many doctors and was not taking any treatment for anything. Patient was just recently in the hospital from October 21 to October 28. Physical exam patient is alert and oriented x3 no acute distress lying down comfortably speaking in full sentences HEENT normocephalic nontraumatic head PERRLA. EOMI. CVS first and second heart sounds are regular rate rhythm no murmurs gallops or rubs Respiratory system is clear to auscultate bilaterally no rales rhonchi crackles or wheezing Abdomen is soft scaphoid benign bowel sounds are positive nontender nondistended Extremities no clubbing cyanosis or edema Neurological exam no focal deficits Hospital course patient is a 64-year-old that recently had a four vessel CABG with Dr. Cheek. Patient returns with right-sided paresthesias an MRI revealed a small acute left thalamic infarct. Patient was started on Plavix on top of the aspirin that he was already on. Initially we aim to keep the blood pressure is high though they were pretty controlled in 120s 140s. And now he is being discharged home to maximize on statins and increased from Lipitor 10-80. Dr. tejeda and tele neurology were consulted. Echo did not reveal any other abnormality. Patient did have down trending troponins from his previous admission. And the editor producer did not believe this was a new cardiac event. Patient is stable his vital signs are stable he is being discharged home with advice for close follow up as an outpatient. *Problems/Diagnosis: (1) CVA (cerebral vascular accident) Status: Acute (2) Chest pain Status: Acute (3) Hyperlipemia (4) HTN (hypertension) Total Time Spent on D/C: > 30 Minutes Date of Service: October 30, 2024 Billing Provider: LADI DEMARCO MD Common Visit Codes: 06457-FRS/OBS DISCH DAY >30min Problem Qualifiers (1) CVA (cerebral vascular accident): Qualified Codes: I63.9 - Cerebral infarction, unspecified LADI DEMARCO MD October 30, 2024 09:52
[2024-10-30 10:00] VITALS: BP 108/71; PULSE 117; RESP 16; TEMP 98.2; O2SAT 97
--- NOTE | 2024-10-30 10:15 | PROGRESS NOTE ---
Progress Note Cardiology Providers to CC ~ Subjective Subjective Patient seen and examined this morning. Overall he is doing well. Conscious alert oriented. Minimal weakness on right side. Objective Result Diagram: 10/30/24 0513 10/30/24 05 Objective General: Normal body habitus, no acute distress, HEENT: Sclerae clear, PERRL, gums without lesions or bleeding, oropharynx clear without erythema or exudate. Neck: Supple without enlargement of the thyroid, or lymphadenopathy, Chest: Normal size and shape, no tenderness, nonlabored breathing, Breath sounds clear to auscultation. Heart: Regular in rate and rhythm, S1 and S2 normal, no S3-S4 or murmurs. Abdomen: Soft, nontender, no organomegaly, bowel sounds present. Extremities: No edema cyanosis or clubbing. Minimal weakness on right side Problem\Assessment\Plan Additional Plan 1. * A 64-year-old male with acute CVA: Small left thalamic infarction. Minimal weakness on right side. Patient was not a good candidate for thrombolytic therapy. Patient on aspirin Plavix and statins. 2. CAD status post CABG x4 Cardiac catheterization on 10/21/2024 reveals LAD 80% om 80 and 100% narrowing PDA 80% narrowing Culprit vessel OM 200% occluded successfully recanalized with angioplasty. Patient treated with Aggrastat. Patient reviewed by Dr. Kayley Crews and subsequent CABG x4 . Patient discharged on 10/27/24. Continue aspirin, beta blockers and statins. 3. Downtrending troponins: Patient[place]onin [place] [address]65 on 10/21/2024. During this admission they are 1947, 1712, and 1464 . They appeared to be downtrending Troponins from prior admission. Echocardiogram from this admission showed normal EF with no new wall motion abnormalities. Continue aspirin Plavix and statins. 2. * diabetes, Hypertension, hyperlipidemia. Counseled on coronary risk factor modification. Continue to control his blood pressure with beta-blockers, CAROLINE inhibitor and start statins. Other comorbidities include: Anemia with hemoglobin of 10.9 on 10/30/2024 VIKKI GUTIERREZ MD October 30, 2024 10:15
--- NOTE | 2024-10-31 09:43 | CARDIOLOGY REPORT ---
APPROVED REPORT EXAM: Limited 2D, Doppler, and color-flow Echocardiogram. Patient Location: ER R 5 Blood Pressure: 175/90 mmHg Heart Rate: 102 bpm Rhythm: Tachycardia Indications CVA (Bubble Study Not Ordered) Right Side Numbness Troponin: 1947, 1712 ProBNP: 1333 Coronary Artery Disease CABG x 4 (10/22/24) Hypertension CANE FEEDER: Kae Ballesteros MD Previous ECHO/MARY: 10/22/24, [facility], SS, EF: 65-70 2D Dimensions IVSd 1.2 (0.7-1.1cm) LVDd 3.3 cm PWd 1.2 (0.7-1.1cm) IVSs 1.5 (0.8-1.2cm) LVDs 1.8 (2.5-4.0cm) PWs 1.7 (0.8-1.2cm) LVEF(%) 78.2 (>50%) IVC 15.20 mm FS (%) 45.7 % SV 35.2 ml CO 3.6 L/min M-Mode Dimensions Left Atrium(MM) 3.09 (2.5-4.0cm) Aortic Root 3.21 (2.2-3.7cm) Aortic Cusp Exc 2.31 (1.5-2.0cm) Aortic Valve AoV Peak Gonzalo. 99.1 cm/s AO Peak GR. 3.9 mmHg Tricuspid Valve TR P. Velocity 135 cm/s RAP ESTIMATE 10 mmHg TR Peak Gr. 7 mmHg RVSP 17 mmHg LEFT VENTRICLE Normal LV size with hyperdynamic function. Mild concentric hypertrophy. LVEF is 75-80%. RIGHT VENTRICLE RV is normal size and function. ATRIA The left atrium appears normal in size. AORTIC VALVE Trileaflet AV appears mildly sclerotic without stenosis. No insufficiency. AV not fully evaluated due to limited focused exam. MITRAL VALVE Mild mitral annular calcification without stenosis. Trace regurgitation. MV not fully evaluated due t o limited focused exam. TRICUSPID VALVE The tricuspid valve is normal in structure with trace regurgitation. PULMONIC VALVE Pulmonic valve is grossly normal in structure. GREAT VESSELS The aortic root is normal in size. IVC is normal in size. PERICARDIUM Normal pericardium. No effusion. Other Information Study Quality: Adequate Conclusion Normal LV size with hyperdynamic function. Mild concentric hypertrophy. LVEF is 75-80%. RV is normal size and function. The left atrium appears normal in size. Trileaflet AV appears mildly sclerotic without stenosis. No insufficiency. AV not fully evaluated d ue to limited focused exam. Mild mitral annular calcification without stenosis. Trace regurgitation. MV not fully evaluated due to limited focused exam. The tricuspid valve is normal in structure with trace regurgitation. Normal pericardium. No effusion.
== END 2024-10-30 12:00 | disposition home or self-care (01) | DRG 45 ==
LOC: ER 12:55 → ED HOLD 16:26 → ORTHO 4S 19:10
PROVIDERS: ADMIT Internal Medicine; ATTEND Internal Medicine
PROC: B3251ZZ Computerized Tomography (CT Scan) of Bilateral Common Carotid Arteries using Low Osmolar Contrast (ICD-10-PCS; principal; 2024-10-28)
PROC: B32G1ZZ Computerized Tomography (CT Scan) of Bilateral Vertebral Arteries using Low Osmolar Contrast (ICD-10-PCS; 2024-10-28)
PROC: B32R1ZZ Computerized Tomography (CT Scan) of Intracranial Arteries using Low Osmolar Contrast (ICD-10-PCS; 2024-10-28)
PROC: B3281ZZ Computerized Tomography (CT Scan) of Bilateral Internal Carotid Arteries using Low Osmolar Contrast (ICD-10-PCS; 2024-10-28)
DX: I63.9 Cerebral infarction, unspecified (principal); D72.829 Elevated white blood cell count, unspecified; E11.9 Type 2 diabetes mellitus without complications; E78.5 Hyperlipidemia, unspecified; I10 Essential (primary) hypertension; I25.10 Atherosclerotic heart disease of native coronary artery without angina pectoris; Z79.899 Other long term (current) drug therapy; Z79.02 Long term (current) use of antithrombotics/antiplatelets; Z95.1 Presence of aortocoronary bypass graft
CPT/HCPCS: 36415; 70450; 70496; 70498; 70551; 71045; 80053; 82607; 82948; 83735; 83880; 84484; 85025; 86592; 87081; 93005; 93308; 93880; 97116; 97161; 97530; 99285; G0378; J1650; J1815; Q9967

== ENCOUNTER 2024-11-07 10:55 | Emergency (ER) | payer MEDICAID ==
[~2024-11-07] VITALS: Ht 165.1 cm; Wt 59.8 kg
[~2024-11-07 10:55] MED LIST changes: -ATOR10TA PO; +ATOR20TA66 PO; +CLOP75TA34 PO
--- NOTE | 2024-11-07 11:43 | Physician Documentation ---
History of Present Illness Chief Complaint: See Chief Complaint Stated Complaint: POST OP COMPLICATIONS Time Seen by MD: 11:41 OK to notify your PCP?: Yes Primary Medical Doctor: Dr. Hobson Source: patient, family, RN/MD, sign language interpreter, RN notes reviewed Mode of Arrival: POV Exam Limitations: no limitations HPI This patient is a 64 y/o male who presents to ED with for wound check. Patient arrives with family to help translate; patient was initially having some complaints of right hand numbness, but after speaking with patient's family it became clear that this is a chronic deficit that he has had since his stroke last month. Patient today arrives status post open heart surgery, with concerns of how to clean his wound safely, and weather or not he can shower with them. Patient was asked but denies any new weakness. States his open heart surgery was about 10 days ago but unsure when follow up appointment is. Patient denies any other associated symptoms at this time. Patient denies any other alleviating or exacerbating factors. Medication Reconciliation Allergies: Coded Allergies: No Known Allergies (Unverified , 11/07/24) Scheduled Aspirin (Children's Aspirin), 81 MG PO Q24H@0830 Atorvastatin Calcium (Atorvastatin Calcium), 80 MG PO HS Clopidogrel Bisulfate (Clopidogrel), 75 MG PO DAILY Lisinopril (Lisinopril), 10 MG PO DAILY Metoprolol Tartrate (Metoprolol Tartrate), 1 TAB PO Q12H Scheduled PRN Hydrocodone Bit/Acetaminophen (Hydrocodon-Acetaminophn 10-325 tablet), 1 TAB PO Q6H PRN for MODERATE PAIN 4-6 Past Medical History Past Medical History: CVA/TIA/Stroke, Atrial Fibrillation, Diabetes Past Surgical History: no surgical history Patient History: Patient reports no known family medical history. Smoking Status: Current every day smoker Alcohol Use: None Drug Use: none Review of Systems All Other Systems at this time: Reviewed and Negative Physical Exam Vital Signs: RN Vital Signs have been reviewed: Yes, Temperature: 97.8, Source: Temporal, Heart Rate: 125, Respiratory Rate: 17, BP: 112/79, Pulse Oximetry: 98, Weight: 59.750 Oxygen Flow Rate: 0 Physical Exam General: The patient is well developed, well nourished, nontoxic appearing and is in no acute distress. Skin: Well healing midline scar and one stitch to epigastric area. Skin oth erwise pink, warm and dry with no rashes. HEENT: Head was normocephalic and atraumatic. Eyes - pupils equal, round, reactive to light and accommodation. Extraocular movements were intact. Conjunctivae were nonicteric. The mouth and oropharynx were clear with moist mucous membranes. There were no pharyngeal exudates or erythema. Neck: Supple and nontender. There was no jugular venous distention, lymphadenopathy, thyromegaly or masses. Chest: Clear to auscultation bilaterally without wheezes, rales or rhonchi. No accessory muscle use. No dullness to percussion. Heart: Irregularly irregular rate and rhythm. S1, S2. No murmurs. Palpation of the chest wall was normal. No rubs or thrills. Abdomen: Soft, nontender and nondistended. Positive bowel sounds. No guarding or rebound. No hepatosplenomegaly or palpable masses. Extremities: No cyanosis, clubbing or edema. The patient moves all extremities. Pulses were equal and symmetric. Neurologic: Cranial nerves II-XII were intact. Sensation was intact to light touch throughout. Motor strength was 5/5 in all four extremities. Deep tendon reflexes were intact in both upper and lower extremities. Psychologic: The patient was oriented to person, place and time. The patient demonstrated appropriate judgement and insight. Progress Results/Orders Reviewed/noted all lab results: Yes Results/Orders Vital Signs 11/07/24 11/07/24 11:15 11:40 Temp 97.8 Pulse 129 125 Resp 16 17 B/P (MAP) 102/78 112/79 (90) Pulse Ox 98 98 O2 Flow Rate 0 0 Re-Evaluation Re-Evaluation : Re-Evaluation: Improved Progress Patient was seen and examined. Patient is given reassurance. Patient was found to be in rapid AFib but later heart rate improved. Patient had some laboratory work obtained. CBC was within normal limits with borderline anemia of 11 and 334 hemoglobin hematocrit. Chemistry was also reassuring with negative troponins tox screen is negative. The patient was given metoprolol his heart rate started to show some sign of improvement was still in AFib. This is chronic. Patient's main concern was post wound check for which she was showing no signs of infection and was told he can take a shower. Otherwise he should follow up with his deputy chief sheriff as scheduled. Continuous back hanger interpretation shows rapid AFib with RVR heart rate 110s, abnormal, my interpretation. Pulse oximetry monitor interpretation shows normal oxygenation 97% room air, normal, my interpretation. 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 EKG Date and Time:11/07/24 1145 Electronically Signed by: ELGIN SANDOVAL MD Date and Time: 11/07/24 1511 NO PRIMARY CARE PROVIDER~ cc: ~ Medical Decision Making Differential Dx:Considerations: Include: Diverticular disease, Gastritis/PUD, Gastroenteritis, GI hemorrhage, Hernia, Hepatitis, Inflammatory BD, Ischemic bowel, Pancreatitis, Urinary tract infection, Urolithiasis, Other Departure Time of Disposition: 15:17 Disposition: 01 HOME / SELF CARE / HOMELESS Impression: Primary Impression: Visit for wound check Additional Impression: Atrial fibrillation with RVR Condition: Stable Discharge Instructions: Atrial Fibrillation, Wound Care, Adult Additional Instructions: Follow up with your primary care provider as needed. Return to ER for any new or worsening symptoms or other concerns. Referrals: NO PRIMARY CARE PROVIDER (PCP) Education Educated: Patient Educated regarding: diagnosis, need for follow up, other Signature Scribe Signature: No scribed Attestation: The note accurately reflects work and decisions made by me.Rubens Garcia MD 11/07/24 11:42 RUBENS GARCIA MD Nov 07, 2024 11:42
--- NOTE | 2024-11-07 11:48 | ELECTROCARDIOGRAPH REPORT ---
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
[2024-11-07 12:06] LABS: BASOPHILS # (AUTO) 0.1 X10'3 (0-0.2); EOSINOPHILS # (AUTO) 0.2 X10'3 (0-0.9); EOSINOPHILS % (AUTO) 1.9 % (0-6); HEMATOCRIT 33.9 % (42.0-52.0); HEMOGLOBIN 11.2 g/dl (14.0-17.9); LYMPHOCYTES # (AUTO) 1.4 X10'3 (1.1-4.8); LYMPHOCYTES % (AUTO) 15.1 % (21-51); MEAN CORPUSCULAR HEMOGLOBIN 28.1 PG (27.0-31.0); MEAN CORPUSCULAR VOLUME 85.3 FL (78-98); MONOCYTES # (AUTO) 0.6 X10'3 (0-0.9); MONOCYTES % (AUTO) 6.5 % (2-12); NEUTROPHILS # (AUTO) 6.8 X10'3 (1.8-7.7); NEUTROPHILS % (AUTO) 75.5 % (42-75); PLATELET COUNT 462 X10'3 (140-440); RED BLOOD COUNT 3.98 X10'6 (4.70-6.10); RED CELL DISTRIBUTION WIDTH 13.3 % (11.5-14.5)
[2024-11-07 12:20] LABS: APTT 23 SECONDS (22-32); PROTHROMBIN TIME 10.6 SECONDS (9.0-12.0)
[2024-11-07 12:32] LABS: ALBUMIN 3.3 G/DL (3.4-5.0); ANION GAP 7 (8-16); BLOOD UREA NITROGEN 19 MG/DL (7-18); CALCIUM 9.4 MG/DL (8.5-10.1); CHLORIDE 106 MMOL/L (99-107); CREATININE 1.12 MG/DL (0.60-1.10); GLUCOSE 143 MG/DL (70-104); LIPASE 84 U/L (16-77); MAGNESIUM 2.2 MG/DL (1.5-2.4); POTASSIUM 4.1 MMOL/L (3.5-5.1); PRO BRAIN NATRIURETIC PEPTIDE 860 PG/ML (0-125); SODIUM 142 MMOL/L (135-145); eCRCL 55 ML/MIN; eGFR 66 ML/MIN
[2024-11-07 12:33] LABS: ETHANOL < 10 MG/DL (<10)
[2024-11-07 12:42] LABS: URINE AMPHETAMINE SCREEN NEGATIVE (Neg); URINE BARBITUATE SCREEN NEGATIVE (Neg); URINE BENZODIAZEPINES SCREEN NEGATIVE (Neg); URINE CANNABINOID SCREEN NEGATIVE (Neg); URINE COCAINE SCREEN NEGATIVE (Neg); URINE METHADONE SCREEN NEGATIVE (Neg); URINE OPIATE SCREEN NEGATIVE (Neg); URINE PHENCYCLIDINE SCREEN NEGATIVE (Neg)
[2024-11-07] MEDS: metoprolol tartrate 50mg tablet PO ONE (15:17)
[2024-11-07 15:33] VITALS: BP 146/89; PULSE 99; RESP 18; O2SAT 97
[2024-11-07 15:38] VITALS: TEMP 97.8
== END 2024-11-07 15:40 | disposition home or self-care (01) ==
LOC: ER 10:56
DX: Z48.00 Encounter for change or removal of nonsurgical wound dressing (principal); I48.20 Chronic atrial fibrillation, unspecified; E11.9 Type 2 diabetes mellitus without complications; F17.200 Nicotine dependence, unspecified, uncomplicated; Z86.73 Personal history of transient ischemic attack (TIA), and cerebral infarction without residual deficits; Z79.82 Long term (current) use of aspirin
CPT/HCPCS: 36415; 80048; 80305; 80320; 83690; 83735; 83880; 84484; 85025; 85610; 85730; 93005; 99285